=== PATIENT | male | born 1965 | race African-American/Black ===

== ENCOUNTER 2024-05-16 13:34 | Emergency (ER) | payer MEDICAID ==
[~2024-05-16] VITALS: Ht 180.3 cm; Wt 114.0 kg
[2024-05-16 13:40] VITALS: TEMP 98.7; O2SAT 99
[2024-05-16 15:19] LABS: BASOPHILS % 1.1 % (0.0-2.0); EOSINOPHILS % 2.9 % (0.0-5.0); HEMATOCRIT. 40.8 % (42.0-52.0); HEMOGLOBIN. 13.6 g/dL (14.0-18.0); LYMPHOCYTES % 31.8 % (20.0-50.0); MEAN CORPUSCULAR HEMOGLOBIN 29.5 pg (28.0-32.0); MEAN CORPUSCULAR HGB CONC 33.4 g/dL (31.0-37.0); MEAN CORPUSCULAR VOLUME 88.3 fL (80.0-94.0); MEAN PLATELET VOLUME 7.9 fl (7.4-10.4); MONOCYTES % 12.6 % (2.0-8.0); NEUTROPHILS % 51.6 % (40.0-76.0); PLATELET 247 x1000/uL (130-400); RED BLOOD CELL COUNT 4.62 mill/uL (4.7-6.1); RED CELL DISTRIBUTION WIDTH 14.1 % (11.6-14.6); WHITE BLOOD COUNT 5.3 x1000/uL (4.5-11.0)
[2024-05-16 15:24] LABS: POTASSIUM 4.1 mEq/L (3.5-5.1)
[2024-05-16 15:25] LABS: CALCIUM 9.4 mg/dL (8.7-10.4)
[2024-05-16 15:30] LABS: CREATININE 1.5 mg/dL (0.6-1.3)
[2024-05-16 16:40] VITALS: BP 130/80; PULSE 76; RESP 16; O2SAT 99
== END 2024-05-16 16:41 | disposition home or self-care (01) ==
LOC: ER 13:34
DX: Z00.00 Encounter for general adult medical examination without abnormal findings (principal); E11.9 Type 2 diabetes mellitus without complications; I10 Essential (primary) hypertension; F41.9 Anxiety disorder, unspecified; F32.A Depression, unspecified; Z88.8 Allergy status to other drugs, medicaments and biological substances; Z68.35 Body mass index [BMI] 35.0-35.9, adult
CPT/HCPCS: 36415; 80048; 82550; 85025; 93005; 99284